=== PATIENT | female | born 1985 | race Caucasian/White ===

== ENCOUNTER 2020-03-31 11:11 | Outpatient (CLI) | payer OTHER ==
[2020-04-01 13:49] LABS: SARS-CoV-2 MS2 Positive; SARS-CoV-2 N Gene Negative; SARS-CoV-2 S Gene Negative; SARS-CoV-2 orf1ab Negative
== END 2020-03-31 11:12 | disposition home or self-care (01) ==
LOC: SCSRAD 11:11 → SCSLAB 11:12
PROVIDERS: ATTEND Family Medicine
DX: Z01.812 Encounter for preprocedural laboratory examination (principal); Z11.59 Encounter for screening for other viral diseases
CPT/HCPCS: 87635; U0003

== ENCOUNTER 2020-04-01 13:22 | Inpatient (IN) | payer OTHER ==
[2020-04-01 13:51] VITALS: BMI 42.0
[2020-04-01] MEDS ORDERED: Penicillin G Potassium 5 MILL.UNITS VIAL ONE (14:03)
[2020-04-01] MEDS ORDERED: HYDROcodone/Acetaminophen 5/325 mg Tablet PO PRN ×4 (14:13→17:12)
[2020-04-01] MEDS ORDERED: Acetaminophen 500 MG TAB PO PRN (14:13)
[2020-04-01] MEDS ORDERED: Butorphanol Tartrate 1 MG/ML VIAL SLOW IVP PRN (14:13)
[2020-04-01] MEDS ORDERED: hydrALAZINE 20 MG/ML VIAL SLOW IVP PRN ×2 (14:13→17:12)
[2020-04-01] MEDS ORDERED: Ibuprofen 800 MG TAB PO PRN (14:13)
[2020-04-01] MEDS ORDERED: NS / Oxytocin 40 units/1000ml 1,000 ML IV PRN (14:13)
[2020-04-01] MEDS ORDERED: Zolpidem Tartrate 5 MG TAB PO PRN (14:13)
[2020-04-01] MEDS ORDERED: Ondansetron PF 4 MG/2 ML Vial IVP PRN ×2 (14:13→17:12)
[2020-04-01] MEDS ORDERED: Misoprostol 200 MCG TAB PR PRN (14:13)
[2020-04-01] MEDS ORDERED: Lidocaine 1% (PF) 30 ML VIAL SC PRN (14:13)
[2020-04-01] MEDS ORDERED: Meperidine HCl/PF 25 MG/ML VIAL IM/IV PRN (14:13)
[2020-04-01] MEDS ORDERED: Promethazine HCl 25 MG/ML VIAL IM PRN (14:13)
[2020-04-01] MEDS ORDERED: Lidocaine 1% (PF) 30 ML VIAL ONE (14:14)
[2020-04-01] MEDS ORDERED: NS / Oxytocin 40 units/1000ml 1,000 ML ONE (14:14)
[2020-04-01] MEDS ORDERED: Penicillin G Potassium 5 MILL.UNITS in Sodium Chloride 0.9% 100 ML IVPB SCH (14:15)
[2020-04-01] MEDS ORDERED: NS w/ Oxytocin 10 units 500 ML IV SCH (14:15)
[2020-04-01] MEDS ORDERED: Lactated Ringer's 1,000 ML IV SCH ×2 (14:15)
--- NOTE | 2020-04-01 14:25 | PDOC.LDHP ---
Labor and Delivery H&P Chief complaint: contractions HPI: 35 yo LAF c/o UCs since 11 AM. Denies SROM or bleeding. Current gestational age (weeks): 39 Due date: 04/01/20 Dating criteria: last menstrual period Grav: 3 Para: 2 OB History Details: at term x2. PNC with Dr. Kaplan w/o complications. Current complications: none Abnormal US findings: No Current medications: pre- vitamins Previous surgical history: none Allergies/Adverse Reactions: Allergies Allergy/AdvReac Type Severity Reaction Status Date / Time No Known Allergies Allergy Verified 04/01/20 13:50 Social history: none - Physical Exam Vital signs reviewed and normal: yes General: breathing through contractions Heart: RRR Lungs: CTAB Abdomen: gravid Extremeties: trace edema FHT: category 1 [place] contractions every: q 2-3 mins - Vaginal Exam cm dilated: 4 - OB Labs GBS: positive - Assessment L&D Assessment: term patient in labor - Plan Plan: admit to L&D, GBS antibiotic prophylaxis, informed consent obtained, other (Dr. Kaplan notified of admit)
[2020-04-01] MEDS ORDERED: Fentanyl 4 mcg/Bup 0.1% Cadd 0 ML ONE ×3 (14:31→14:34)
[2020-04-01 14:43] LABS: Hemoglobin 13.4 g/dL (12.0-16.0); Mean Corpuscular HGB CONC 33.6 g/dL (32.0-36.0); Mean Corpuscular Hemoglobin 29.4 pg (27.0-31.0); Mean Corpuscular Volume 87.4 fL (78.0-98.0); Mean Platelet Volume 7.5 fL (7.4-10.4); Platelet Count 237 thou/uL (130-400); RBC Distribution Width 12.9 % (11.5-14.5); Red Blood Cell (RBC) Count 4.57 mill/uL (4.20-5.40); White Blood Cell (WBC) Count 11.2 thou/uL (4.8-10.8)
[2020-04-01 15:24] LABS: Syphilis Antibody Nonreactive (Nonreactive); Syphilis Antibody Index 0.04 S/CO (<1.00 Non-Reactive)
[2020-04-01 15:37] LABS: HBSAg Index 0.11 S/CO (0-0.99); Hep B Surf Ag Non-Reactive S/CO (NonReactive)
[2020-04-01] MEDS ORDERED: Penicillin G 2.5 MILL.units 2.5 MILL.UNITS in Premix Bag 1 BAG IVPB SCH (17:00)
[2020-04-01] MEDS ORDERED: Bisacodyl 10 MG SUPP PR PRN (17:12)
[2020-04-01] MEDS ORDERED: NS / Oxytocin 40 units/1000ml 1,000 ML IV SCH (17:12)
[2020-04-01] MEDS ORDERED: Lanolin Ointment 7 GM TUBE TOP PRN (17:12)
[2020-04-01] MEDS ORDERED: Milk Of Magnesia 30 ML UDCUP PO PRN (17:12)
[2020-04-01] MEDS ORDERED: diphenhydrAMINE 25 MG CAP PO PRN (17:12)
[2020-04-01] MEDS ORDERED: Benzocaine-Menthol 82.5 ML CAN TOP PRN (17:12)
[2020-04-01] MEDS ORDERED: Ferrous Sulfate 325 MG TAB PO SCH (18:00)
[2020-04-01] MEDS: Ibuprofen 800 MG TAB PO SCH (20:56)
[2020-04-01] MEDS: Docusate Calcium (SURFAK) 240 MG CAP PO SCH (20:56)
[2020-04-02] MEDS: Ibuprofen 800 MG TAB PO SCH ×3 (05:23→21:17)
[2020-04-02 05:54] LABS: Hemoglobin 11.1 g/dL (12.0-16.0); Mean Corpuscular HGB CONC 34.5 g/dL (32.0-36.0); Mean Corpuscular Hemoglobin 30.3 pg (27.0-31.0); Mean Corpuscular Volume 87.9 fL (78.0-98.0); Mean Platelet Volume 7.6 fL (7.4-10.4); Platelet Count 194 thou/uL (130-400); RBC Distribution Width 12.9 % (11.5-14.5); Red Blood Cell (RBC) Count 3.65 mill/uL (4.20-5.40); White Blood Cell (WBC) Count 11.4 thou/uL (4.8-10.8)
[2020-04-02] MEDS ORDERED: Adacel (T-DAP) 0.5 ML SYRINGE IM ONE (09:00)
[2020-04-02] MEDS: Ferrous Sulfate 325 MG TAB PO SCH ×2 (09:33→17:25)
[2020-04-02] MEDS: Prenatal Vitamin 1 TAB PO SCH (09:34)
[2020-04-02] MEDS: Docusate Calcium (SURFAK) 240 MG CAP PO SCH ×2 (09:34→21:17)
[2020-04-03] MEDS: Ibuprofen 800 MG TAB PO SCH ×2 (05:29→14:02)
[2020-04-03] MEDS: Ferrous Sulfate 325 MG TAB PO SCH (08:51)
[2020-04-03] MEDS: Docusate Calcium (SURFAK) 240 MG CAP PO SCH (09:01)
[2020-04-03] MEDS: Prenatal Vitamin 1 TAB PO SCH (09:01)
[2020-04-03 13:13] VITALS: BP 109/58; TEMP 98.3
--- NOTE | 2020-04-05 20:52 | OP ---
DATE OF PROCEDURE: 04/01/2020 PREOPERATIVE DIAGNOSES: 1. 39-week . 2. Active labor. POSTOPERATIVE DIAGNOSES: 1. 39-week . 2. Active labor, delivered. PROCEDURE PERFORMED: Spontaneous vaginal delivery. ANESTHESIA: None. DESCRIPTION OF EVENTS: I was present for delivery of this 35-year-old female, G3, P2, now P3 of a viable female infant on 04/01/2020 at 1509 hours. The delivered in OA presentation over an intact perineum. Remainder of the delivered uneventfully and without difficulties. Cord blood was obtained. The placenta was delivered spontaneously intact. Three-vessel cord was noted. There were no lacerations seen. QBL was 76 mL. She was taken to Recovery in stable condition and the infant to the nursery in stable condition. Job ID: [id number]
== END 2020-04-03 16:27 | disposition home or self-care (01) | DRG 807 ==
LOC: L&D/OP 13:22 → L&D 14:18 → 3SW 18:29
PROVIDERS: ADMIT Family Medicine; ATTEND Family Medicine
PROC: 10E0XZZ Delivery of Products of Conception, External Approach (ICD-10-PCS; principal; 2020-04-01)
DX: O62.3 Precipitate labor (principal); Z37.0 Single live birth; O99.824 Streptococcus B carrier state complicating childbirth; Z3A.39 39 weeks gestation of pregnancy
CPT/HCPCS: 36415; 85027; 86780; 86850; 86900; 86901; 87340; 99285; J2001; J2540; J3490

== ENCOUNTER 2022-09-01 12:01 | Emergency (ER) | payer OTHER ==
[2022-09-01] MEDS ORDERED: Acetaminophen 500 MG TAB ONE (15:30)
[2022-09-01 16:05] LABS: SARS-CoV-2 NAA Rapid Test Not Detected (NotDetected)
== END 2022-09-01 15:13 | disposition home or self-care (01) ==
LOC: ERS 12:01
DX: J10.1 Influenza due to other identified influenza virus with other respiratory manifestations (principal); Z20.822 Contact with and (suspected) exposure to COVID-19
CPT/HCPCS: 99283